=== PATIENT | female | born 1950 | race Caucasian/White ===

== ENCOUNTER 2021-10-02 12:24 | Outpatient (CLI) | payer MEDICARE, SELFPAY ==
[2021-10-02 14:27] LABS: Influenza Control Valid (Valid)
[2021-10-02 14:32] LABS: SARS-CoV-2 Ag Negative (Negative)
== END 2021-10-02 12:25 | disposition home or self-care (01) ==
PROVIDERS: PCP Internal Medicine; Visit Provider Internal Medicine
DX: J06.9 Acute upper respiratory infection, unspecified (principal); Z20.822 Contact with and (suspected) exposure to COVID-19
CPT/HCPCS: 87081; 87426; 87804; 87880; C9803

== ENCOUNTER 2021-10-31 09:47 | Outpatient (CLI) | payer MEDICARE, SELFPAY ==
--- NOTE | ~2021-10-31 | XR_ITS ---
XR chest 2V DATE: 10/31/2021 10:21 INDICATION: Cough, upper respiratory tract symptoms for 3 weeks TECHNIQUE: PA and lateral views COMPARISON: 02/11/2019 2 view chest FINDINGS: Interval placement of right Port-A-Cath since 02/11/2019, the distal tip near the superior c avoatrial junction. Normal heart size. No hilar or mediastinal enlargement. Bilateral hyperinflation. No pulmonary infiltrate or consolidation is detected. There is minimal blun ting of the costophrenic angles; minimal pleural effusion is not excluded. No pulmonary vascular eduar estion or pneumothorax. Surgical clips are noted in the mid abdomen. There is osteopenia. IMPRESSION: Moderate hyperinflation; no active cardiopulmonary disease Right Port-A-Cath Osteopenia Reviewed, dictated and finalized at location A. [employer]
[2021-10-31 10:10] LABS: Basophils Absolute Auto 0.03 K/mm3 (0.00-0.10); Basophils Percent Auto 0.7 % (0.0-1.0); Eosinophils Absolute Auto 0.09 K/mm3 (0.02-0.50); Eosinophils Percent Auto 2.1 % (1.0-6.0); Hematocrit 41.6 % (35.0-42.0); Hemoglobin 13.4 g/dL (11.7-13.8); Immature Granulocyte Absolute 0.01 K/mm3 (0.00-0.00); Immature Granulocyte Percent A 0.2 % (0.0-0.0); Lymphocytes Absolute Auto 1.48 K/mm3 (1.10-4.50); Lymphocytes Percent Auto 34.8 % (18.0-42.0); Mean Corpuscular HGB Conc 32.2 g/dL (32.0-36.0); Mean Corpuscular Hemoglobin 30.9 pg (27.0-31.0); Mean Corpuscular Volume 96.1 fL (78.0-102.0); Mean Platelet Volume 8.7 fl (9.2-11.8); Monocytes Absolute Auto 0.43 K/mm3 (0.10-0.90); Monocytes Percent Auto 10.1 % (2.0-11.0); Neutrophils Absolute Auto 2.2 K/mm3 (1.7-7.2); Neutrophils Percent Auto 52.1 % (50.0-70.0); Platelet Count Result 144 K/mm3 (150-420); Red Blood Count 4.33 M/mm3 (4.20-5.40); Red Cell Distribution Width 15.3 % (11.6-14.4); White Blood Count 4.3 K/mm3 (4.8-10.8)
== END 2021-10-31 09:48 | disposition home or self-care (01) ==
LOC: CHSLAB 09:49
PROVIDERS: PCP Internal Medicine; Visit Provider Internal Medicine
DX: R05.9 Cough, unspecified (principal)
CPT/HCPCS: 36415; 71046; 85025

== ENCOUNTER 2022-01-05 14:52 | Outpatient (CLI) | payer MEDICARE, SELFPAY ==
--- NOTE | ~2022-01-05 | XR_ITS ---
EXAMINATION: XR shoulder RT min 2V DATE: 01/05/2022 15:15 INDICATION: Right shoulder pain. TECHNIQUE: 5 views of right shoulder were obtained. COMPARISON: None. FINDINGS: Bone alignment is normal. No fracture. There is mild osteoarthritis of glenohumeral joint a nd severe osteoarthritis of acromioclavicular joint. There is a right internal jugular port with tip in superior vena cava. IMPRESSION: 1. Polyarticular osteoarthritis. Reviewed, dictated and finalized at location A.
== END 2022-01-05 14:53 | disposition home or self-care (01) ==
LOC: CHSIMG 14:54
PROVIDERS: PCP Internal Medicine; Visit Provider Internal Medicine
DX: M25.511 Pain in right shoulder (principal)
CPT/HCPCS: 73030

== ENCOUNTER 2022-01-10 15:14 | Outpatient (CLI) | payer MEDICARE, SELFPAY ==
--- NOTE | ~2022-01-10 | XR_ITS ---
EXAMINATION: XR chest 2V DATE: 01/10/2022 15:48 INDICATION: Cough and shortness of breath and chest pain. TECHNIQUE: Frontal and lateral views of the chest were obtained. COMPARISON: Chest 2 views 10/31/2021, chest CT 02/11/2017 FINDINGS: There is mild scarring at the lung apices. There is mild atelectasis versus scarring at the lung bases. No pleural effusion or pneumothorax. The heart size is normal. There is a right internal jugular port with tip at superior cavoatrial junction. There is an old right rib fracture. IMPRESSION: 1. Mild scarring at the lung apices and mild atelectasis versus scarring at the lung bases. Reviewed, dictated and finalized at location B.
[2022-01-10 15:51] LABS: Basophils Absolute Auto 0.03 K/mm3 (0.00-0.10); Basophils Percent Auto 0.4 % (0.0-1.0); Eosinophils Absolute Auto 0.07 K/mm3 (0.02-0.50); Hematocrit 44.3 % (35.0-42.0); Hemoglobin 14.1 g/dL (11.7-13.8); Immature Granulocyte Absolute 0.02 K/mm3 (0.00-0.00); Immature Granulocyte Percent A 0.3 % (0.0-0.0); Mean Corpuscular HGB Conc 31.8 g/dL (32.0-36.0); Mean Corpuscular Hemoglobin 30.9 pg (27.0-31.0); Mean Corpuscular Volume 96.9 fL (78.0-102.0); Mean Platelet Volume 9.3 fl (9.2-11.8); Monocytes Absolute Auto 0.67 K/mm3 (0.10-0.90); Monocytes Percent Auto 9.5 % (2.0-11.0); Neutrophils Absolute Auto 3.4 K/mm3 (1.7-7.2); Neutrophils Percent Auto 47.8 % (50.0-70.0); Platelet Count Result 179 K/mm3 (150-420); Red Blood Count 4.57 M/mm3 (4.20-5.40); Red Cell Distribution Width 15.3 % (11.6-14.4); White Blood Count 7.1 K/mm3 (4.8-10.8)
[2022-01-10 16:09] LABS: Alanine Aminotransferase 14 U/L (14-59); Albumin Level 3.5 g/dL (3.4-5.0); Alkaline Phosphatase 49 U/L (46-116); Anion Gap 9 mmol/L (8-16); Aspartate Amino Transferase 20 U/L (15-37); Bilirubin,Total 0.4 mg/dL (0.00-1.00); Blood Urea Nitrogen 16 mg/dL (7-18); Calcium 9.3 mg/dL (8.5-10.1); Carbon Dioxide 28 mmol/L (21-32); Chloride 102 mmol/L (98-108); Estimated Glomerular Filt Rate 48; Glucose 103 mg/dL (70-99); Osmolality Calculated 289 mOsm/kg (285-295); Sodium 139 mmol/L (136-145)
[2022-01-10 16:28] LABS: Influenza A QL RT-PCR Negative (Negative); Influenza B QL RT-PCR Negative (Negative); SARS-CoV-2 RNA PCR Negative (Negative)
== END 2022-01-10 15:15 | disposition home or self-care (01) ==
LOC: CHSLAB 15:16
PROVIDERS: PCP Internal Medicine; Visit Provider Internal Medicine
DX: R05.9 Cough, unspecified (principal); J06.9 Acute upper respiratory infection, unspecified; Z20.822 Contact with and (suspected) exposure to COVID-19
CPT/HCPCS: 71046; 80053; 85025; 87081; 87502; 87880; C9803; U0003; U0005